=== PATIENT | female | born 1995 | race Caucasian/White ===

== ENCOUNTER → 2017-01-09 | Outpatient (CLI) | payer BC | END | disposition home or self-care (01) | LOC: MW.CHOBGYN 13:28 | PROVIDERS: ATTEND Advanced Practice Midwife | DX: Z34.90 Encounter for supervision of normal pregnancy, unspecified, unspecified trimester (principal) | CPT/HCPCS: 36415; 80305; 81003; 85025; 86592; 86762; 86803; 86850; 86900; 86901; 87086; 87340; 87389; 87491; 87591 ==

== ENCOUNTER → 2017-01-25 | Outpatient (CLI) | payer BC ==
--- NOTE | 2017-01-26 11:16 | US ---
Examination: Greater than 14 weeks transabdominal ultrasound with color Doppler and M-mode evaluatio n. HISTORY: FINDINGS: LMP is 09/06/2016 EVALUATION: Posterior placenta with a cephalic lie and grade 1. Visually amniotic fluid is wit hin normal limits. Three-vessel cord is seen. Ventricles are within normal limits. Nuchal fold thickness is 4.9 mm. Four chamber heart is noted. Heart rate is 143 beats per minute. BIOMETRY AND GESTATIONAL AGE: Biparietal diameter 4.35 cm. The abdominal circumference is 15.2 cm. The femoral length is 3.5 cm wi th head circumference of 16.2 cm. Gestational age is 20 weeks and 0 days. The expected date of leo robbins is approximately 06/14/2017. Fetus weight is 355 grams. Overall the fetus is within the 64th perc entile. However the head circumference is within the 5th percentile. Other detail anatomy summarized into PACs sheet after the images. No anatomical anomalies. IMPRESSION: Single active IU with cephalic fetus. Posterior placenta with grade 1, no placenta previa. No anomalies are seen. Amniotic fluid appears within normal limits.
== END ==
LOC: MW.US 12:23
PROVIDERS: ATTEND Advanced Practice Midwife
DX: Z34.90 Encounter for supervision of normal pregnancy, unspecified, unspecified trimester (principal); Z3A.20 20 weeks gestation of pregnancy
CPT/HCPCS: 76805; 76805-26

== ENCOUNTER 2017-06-09 08:25 | Inpatient (IN) | payer BC ==
[2017-06-09] MEDS ORDERED: Misoprostol 200 MCG Tab PO PRN (08:57)
[2017-06-09] MEDS ORDERED: Nalbuphine 10 MG/1 ML Vial IVPUSH PRN (08:57)
[2017-06-09] MEDS ORDERED: Sodium Chloride 0.9% 2.5 ML Syringe FLUSH PRN (08:57)
[2017-06-09] MEDS ORDERED: Water For Irrigation,Sterile 1,000 ML Container IRR PRN (08:57)
[2017-06-09] MEDS ORDERED: Carboprost Tromethamine 250 MCG/1 ML Amp IM PRN (08:57)
[2017-06-09] MEDS ORDERED: Methylergonovine 0.2 MG/1 ML Amp IM PRN (08:57)
[2017-06-09] MEDS ORDERED: Sodium Chloride 0.9% 10 ML Syringe FLUSH PRN (08:57)
[2017-06-09] MEDS ORDERED: Lidocaine 1% 50 ML MDV INJECT PRN (08:57)
[2017-06-09] MEDS ORDERED: Terbutaline 1 MG/ML SDV SUBCUT PRN (08:59)
[2017-06-09] MEDS ORDERED: Oxytocin/0.9 % Sodium Chloride 30 UNIT/500 ML BAG IV SCH (09:00)
[2017-06-09] MEDS: Lactated Ringers 1,000 ML IV SCH ×2 (09:05→14:00)
--- NOTE | 2017-06-09 10:08 | PCM.LDHP ---
L&D History of Present Illness - General Date of Service: 06/09/17 Admit Problem/Dx: Patient Status Order with Admit Dx/Problem 06/09/17 08:57 Patient Status [ADT] Routine Admission Diagnosis/Problem Admission Diagnosis/Problem 06/09/17 10:02 22 yo EDC 06/13/2017 3939 3/7wks IOL for elevated BP and edema. O+, RI, GBS neg. Source of Information: Patient History Limitations: Reports: No Limitations - History of Present Illness Improves with: Reports: None Worsens with: Reports: None Associated Symptoms: Reports: N - Related Data Allergies/Adverse Reactions: Allergies Allergy/AdvReac Type Severity Reaction Status Date / Time No Known Allergies Allergy Verified 05/15/14 20:57 Home Medications: Home Meds . [No Known Home Meds] 05/15/14 [History] Past Medical History - Past Health History Medical/Surgical History: Denies Medical/Surgical History [employer] SU[employer]OR History: Reports: - Infectious Disease History Infectious Disease History: Reports: Chicken Pox Social & Family History - Family History HEENT: Reports: Impaired Vision Cardiac: Reports: CAD, Hypertension, CT Respiratory: Reports: Asthma OBGYN: Reports: Psychiatric: Reports: Depression Endocrine/Metabolic: Reports: Diabetes, Type I Oncologic: Reports: Brain, Breast, Ovarian - Tobacco Use Smoking Status *Q: Never Smoker Second Hand Smoke Exposure: No - Caffeine Use Caffeine Use: Reports: Soda, Tea - Alcohol Use Days Per Week of Alcohol Use: 0 - Recreational Drug Use Recreational Drug Use: No H&P Review of Systems - Review of Systems: Review Of Systems: See Below General: Reports: No Symptoms HEENT: Reports: No Symptoms Pulmonary: Reports: No Symptoms Cardiovascular: Reports: No Symptoms Gastrointestinal: Reports: No Symptoms Genitourinary: Reports: No Symptoms Musculoskeletal: Reports: No Symptoms Skin: Reports: No Symptoms Psychiatric: Reports: No Symptoms Neurological: Reports: No Symptoms Hematologic/Lymphatic: Reports: No Symptoms Immunologic: Reports: No Symptoms L&D Exam - Exam Exam: See Below - Vital Signs Weight: 95.708 kg - OB Specific Fundal Height In cm: 40 Contraction Duration (sec): 90 Contraction Frequency (min): q4-8 Contraction Intensity: Mild Movement: Active Heart Tones: Present Heart Tones per Min: 135 Heart Rate (FHR) Variability: Moderate (6-25 bmp) Presentation: Vertex Estimated Weight: 3400 - Cyr Score Cyr Score Cervix Position: Anterior Cyr Score Consistency: Soft Cyr Score Effacement: 51-70% Cyr Score Dilation: 3-4 cm Cyr Score Infant's Station: -2 Cyr Score Total: 9 - Exam General: Alert, Oriented, Cooperative HEENT: Hearing Intact Lungs: Clear to Auscultation, Normal Respiratory Effort Cardiovascular: Regular Rate, Regular Rhythm, Normal S1, Normal S2 GI/Abdominal Exam: Soft, Non-Tender, No Organomegaly, No Mass, Pelvis Stable ( gravid) Rectal Exam: Deferred Back Exam: Full Range of Motion Extremities: Normal Inspection, Normal Range of Motion, Non-Tender, Normal Capillary Refill, Pedal Edema (+3) Skin: Warm, Dry, Intact Neurological: Reflexes Equal Bilateral, Normal Speech, Normal Tone Psychiatric: Alert, Normal Affect, Normal Mood - Patient Data Lab Results Last 24 hrs: Laboratory Results - last 24 hr 06/09/17 Range/Units 09:10 WBC 17.18 H (4.0-11.0) K/uL RBC 4.43 (4.30-5.90) M/uL Hgb 13.0 (12.0-16.0) g/dL Hct 39.6 (36.0-46.0) % MCV 89.4 (80.0-98.0) fL MCH 29.3 (27.0-32.0) pg MCHC 32.8 (31.0-37.0) g/dL RDW Std Deviation 48.0 (28.0-62.0) fl RDW Coeff of Shaquille 15 (11.0-15.0) % Plt Count 189 (150-400) K/uL MPV 12.70 H (7.40-12.00) fL Nucleated RBC % 0.0 /100WBC Nucleated RBCs # 0 K/uL Result Diagrams: 06/09/17 09:10 - Problem List (1) Supervision of normal IUP (intrauterine ) in multigravida SNOMED Code(s): 753589882, 151790088, 456900965 ICD Code: Z34.80 - ENCOUNTER FOR SUPRVSN OF NORMAL , UNSP TRIMESTER Status: Acute Priority: High Current Visit: Yes Qualifiers: Trimester: third trimester Qualified Code(s): Z34.83 - Encounter for supervision of other normal , third trimester (2) Elevated blood pressure affecting in third trimester, antepartum SNOMED Code(s): 57834078, 32116425, 655567490 ICD Code: O13.3 - GESTATIONAL HTN W/O SIGNIFICANT PROTEINURIA, THIRD TRIMESTER Status: Acute Priority: High Current Visit: Yes Problem List Initiated/Reviewed/Updated: Yes Orders Last 24hrs: Active Orders 24 hr Category Date Time Status Patient Status [ADT] Routine ADT 06/09/17 08:57 Active Bedrest Bathroom Privileges [RC] ASDIRECTED Care 06/09/17 08:59 Active Communication Order [RC] ASDIRECTED Care 06/09/17 08:59 Active Communication Order [RC] ASDIRECTED Care 06/09/17 08:59 Active Heart Tones [RC] CONTINUOUS Care 06/09/17 08:57 Active Non Stress Test [RC] PER UNIT ROUTINE Care 06/09/17 08:57 Active May Shower [RC] ASDIRECTED Care 06/09/17 08:57 Active Notify Provider [RC] PRN Care 06/09/17 08:57 Active Notify Provider [RC] PRN Care 06/09/17 08:59 Active Notify Provider [RC] STAT Care 06/09/17 08:59 Active Oxygen Therapy [RC] ASDIRECTED Care 06/09/17 08:59 Active Up ad Anne [RC] ASDIRECTED Care 06/09/17 08:57 Active Vaginal Exam [RC] PRN Care 06/09/17 08:57 Active Vaginal Exam [RC] PRN Care 06/09/17 08:59 Active Vital Signs [RC] PER UNIT ROUTINE Care 06/09/17 08:57 Active Vital Signs [RC] PER UNIT ROUTINE Care 06/09/17 08:59 Active TYPE AND SCREEN [BBK] Routine Lab 06/09/17 09:10 Received Carboprost Tromethamine [Hemabate DS] Med 06/09/17 08:57 Active 250 mcg IM ASDIRECTED PRN Lactated Ringers [Ringers, Lactated] 1,000 ml Med 06/09/17 09:00 Active IV ASDIRECTED Lidocaine 1% [Xylocaine 1%] Med 06/09/17 08:57 Active 50 ml INJECT .ONCE PRN Methylergonovine [Methergine] Med 06/09/17 08:57 Active 0.2 mg IM ASDIRECTED PRN Misoprostol [Cytotec] Med 06/09/17 08:57 Active 200 mcg PO .ONCE PRN Nalbuphine [Nubain] Med 06/09/17 08:57 Active 10 mg IVPUSH Q1H PRN Oxytocin/0.9 % Sodium Chloride [Oxytocin 30 Unit/500 ML Med 06/09/17 09:00 Active -NS] 30 unit in 500 ml IV TITRATE Sodium Chloride 0.9% [Saline Flush] Med 06/09/17 08:57 Active 10 ml FLUSH ASDIRECTED PRN Sodium Chloride 0.9% [Saline Flush] Med 06/09/17 08:57 Active 2.5 ml FLUSH ASDIRECTED PRN Terbutaline [Brethine] Med 06/09/17 08:59 Active 0.25 mg SUBCUT ASDIRECTED PRN Water For Irrigation,Sterile [Sterile Water for Med 06/09/17 08:57 Active Irrigation] 1,000 ml IRR ASDIRECTED PRN Scalp Electrode [WOMSER] Per Unit Routine Oth 06/09/17 08:57 Ordered Medication Administration Instruction [OM.PC] Q3H Oth 06/09/17 09:00 Ordered Peripheral IV Insertion Adult [OM.PC] Routine Oth 06/09/17 08:57 Ordered Resuscitation Status Routine Resus Stat 06/09/17 08:57 Ordered Medication Orders Carboprost Tromethamine (Hemabate Ds) 250 mcg IM ASDIRECTED PRN PRN Reason: Post Hemorrhage Lactated Ringer's (Ringers, Lactated) 1,000 mls @ 150 mls/hr IV ASDIRECTED DAVE Last Admin: 06/09/17 09:05 Dose: 150 mls/hr Oxytocin/Sodium Chloride (Oxytocin 30 Unit/500 Ml-Ns) 30 unit in 500 mls @ 2 mls/hr IV TITRATE DAVE; 2 MUNITS/MIN PRN Reason: Protocol Last Titration: 06/09/17 09:57 Dose: 4 munits/min, 4 mls/hr Admin: 06/09/17 09:26 Dose: 2 munits/min, 2 mls/hr Lidocaine HCl (Xylocaine 1%) 50 ml INJECT .ONCE PRN PRN Reason: Laceration repair Methylergonovine Maleate (Methergine) 0.2 mg IM ASDIRECTED PRN PRN Reason: Post Hemorrhage Misoprostol (Cytotec) 200 mcg PO .ONCE PRN PRN Reason: Post Hemorrhage Nalbuphine HCl (Nubain) 10 mg IVPUSH Q1H PRN PRN Reason: Pain (severe 7-10) Sodium Chloride (Saline Flush) 10 ml FLUSH ASDIRECTED PRN PRN Reason: Keep Vein Open Sodium Chloride (Saline Flush) 2.5 ml FLUSH ASDIRECTED PRN PRN Reason: Keep Vein Open Sterile Water (Sterile Water For Irrigation) 1,000 ml IRR ASDIRECTED PRN PRN Reason: delivery Terbutaline Sulfate (Brethine) 0.25 mg SUBCUT ASDIRECTED PRN PRN Reason: Tacysystole Assessment/Plan Comment:: IOL A: 22 yo EDC 06/13/2017 3939 3/7wks IOL for elevated BP 140/100 (no other symptoms) and edema. O+, RI, GBS neg. P: admit for IOL, pitocin per protocol, epidural prn, anticipate .
[2017-06-09] MEDS ORDERED: fentaNYL 100 MCG/2 ML SDV ONE (14:05)
[2017-06-09] MEDS ORDERED: Ropivacaine HCl/PF 0 ML ONE (14:05)
[2017-06-09] MEDS ORDERED: Ropivacaine 0.2% 2 MG/ML 20 ML SDV ONE (14:06)
--- NOTE | 2017-06-09 15:37 | PCM.PREANE ---
Preanesthetic Assessment - Anesthesia/Transfusion/Family Hx Anesthesia History: Prior Anesthesia Without Reaction Family History of Anesthesia Reaction: No Transfusion History: No Prior Transfusion(s) - Review of Systems Pulmonary: No Symptoms Cardiovascular: No Symptoms Gastrointestinal: No Symptoms Neurological: No Symptoms Other: Reports: None - Physical Assessment NPO Status Date: 06/09/17 NPO Status Time: 15:31 (cl liquids) Height: 1.6 m Weight: 95.708 kg ASA Class: 3 Mental Status: Alert & Oriented x3 Airway Class: Mallampati = 3 Dentition: Reports: Normal Dentition Thyro-Mental Finger Breadths: 3 Mouth Opening Finger Breadths: 3 ROM/Head Extension: Full Lungs: Clear to Auscultation Cardiovascular: Regular Rate, Regular Rhythm - Lab Values: Laboratory Last Values WBC 17.18 K/uL (4.0-11.0) H 06/09/17 09:10 RBC 4.43 M/uL (4.30-5.90) 06/09/17 09:10 Hgb 13.0 g/dL (12.0-16.0) 06/09/17 09:10 Hct 39.6 % (36.0-46.0) 06/09/17 09:10 MCV 89.4 fL (80.0-98.0) 06/09/17 09:10 MCH 29.3 pg (27.0-32.0) 06/09/17 09:10 MCHC 32.8 g/dL (31.0-37.0) 06/09/17 09:10 RDW Std Deviation 48.0 fl (28.0-62.0) 06/09/17 09:10 RDW Coeff of Shaquille 15 % (11.0-15.0) 06/09/17 09:10 Plt Count 189 K/uL (150-400) 06/09/17 09:10 MPV 12.70 fL (7.40-12.00) H 06/09/17 09:10 Nucleated RBC % 0.0 /100WBC 06/09/17 09:10 Nucleated RBCs # 0 K/uL 06/09/17 09:10 Blood Type O POSITIVE 06/09/17 09:10 Antibody Screen NEGATIVE 06/09/17 09:10 - Allergies Allergies/Adverse Reactions: Allergies Allergy/AdvReac Type Severity Reaction Status Date / Time No Known Allergies Allergy Verified 05/15/14 20:57 - Blood Blood Available: Yes Product(s) Available: PRBC - Acknowledgements Anesthesia Type Planned: Epidural Pt an Appropriate Candidate for the Planned Anesthesia: Yes Alternatives and Risks of Anesthesia Discussed w Pt/Guardian: Yes Pt/Guardian Understands and Agrees with Anesthesia Plan: Yes PreAnesthesia Questionnaire - Past Health History Medical/Surgical History: Denies Medical/Surgical History Other Cardiovascular History: gestational hypertension, new onset 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 weed - HOME MEDS Home Medications: Home Meds . [No Known Home Meds] 05/15/14 [History] - CURRENT (IN HOUSE) MEDS Current Meds: Current Medications Carboprost Tromethamine (Hemabate Ds) 250 mcg IM ASDIRECTED PRN PRN Reason: Post Hemorrhage Lactated Ringer's (Ringers, Lactated) 1,000 mls @ 150 mls/hr IV ASDIRECTED DAVE Last Admin: 06/09/17 14:00 Dose: 999 mls/hr Oxytocin/Sodium Chloride (Oxytocin 30 Unit/500 Ml-Ns) 30 unit in 500 mls @ 2 mls/hr IV TITRATE DAVE; 2 MUNITS/MIN PRN Reason: Protocol Last Titration: 06/09/17 13:52 Dose: 0 munits/min, 0 mls/hr Lidocaine HCl (Xylocaine 1%) 50 ml INJECT .ONCE PRN PRN Reason: Laceration repair Methylergonovine Maleate (Methergine) 0.2 mg IM ASDIRECTED PRN PRN Reason: Post Hemorrhage Misoprostol (Cytotec) 200 mcg PO .ONCE PRN PRN Reason: Post Hemorrhage Nalbuphine HCl (Nubain) 10 mg IVPUSH Q1H PRN PRN Reason: Pain (severe 7-10) Sodium Chloride (Saline Flush) 10 ml FLUSH ASDIRECTED PRN PRN Reason: Keep Vein Open Sodium Chloride (Saline Flush) 2.5 ml FLUSH ASDIRECTED PRN PRN Reason: Keep Vein Open Sterile Water (Sterile Water For Irrigation) 1,000 ml IRR ASDIRECTED PRN PRN Reason: delivery Terbutaline Sulfate (Brethine) 0.25 mg SUBCUT ASDIRECTED PRN PRN Reason: Tacysystole Discontinued Medications Fentanyl (Sublimaze) Confirm Administered Dose 300 mcg .ROUTE .STK-MED ONE Stop: 06/09/17 14:06 Ropivacaine (Naropin 0.2%) Confirm Administered Dose 100 mls @ as directed .ROUTE .STK-MED ONE Stop: 06/09/17 14:06 Ropivacaine (Naropin 0.2%) Confirm Administered Dose 20 ml .ROUTE .STK-MED ONE Stop: 06/09/17 14:07 - Pre-Procedure Checklist Attending Provider Aware: Yes Chart Reviewed: Yes Consent Signed: Yes Labs Reviewed: Yes VS/FHR Reviewed: Yes Pt an Appropriate Candidate for the Planned Anesthesia: Yes Alternatives and Risks of Anesthesia Discussed w Pt/Guardian: Yes - Procedure Procedure Start Date: 06/09/17 Procedure Start Time: 14:[address]: Reports: Blood Pressure, Heart Rate, SPO2 Functional IV: Yes Safety Measures: Reports: Patient Identified, Procedure Verified, Site Verified , Procedure Time Out Patient Position: Reports: Left Lateral (@ 1457), Sitting (@ 1414) Prep: Reports: Betadine x3, Sterile Drape Local Anesthetic: Reports: Intradermal Wheal w Lidocaine 1% Regional Placement Level: Reports: L4-5 Needle: Reports: 17 g Touhy Approach: Reports: Midline Technique: Reports: LB Glass Syringe LB Needle Depth (cm): 9 cm Parasthesia: Reports: None Fluid Obtained: Reports: Heme (heme obtained on second attempt, site dc'd), None Catheter Depth at Skin (cm): 15 cm (@ 1505) Test Dose Time: 15:06 Test Dose Response: Reports: Negative Loading Dose Time: 15:13 (pt given loading dose in increments over 5 minutes) Loading Dose Medication: 100 mcg fentanyl followed by 2-5 ml doses of 0.2% ropivacaine over 5 minute Loading Dose Patient Position: semi fowlers with KATIE VS and FHR Monitored in Unit Post Placement: Yes Procedure End Date: 06/09/17 Procedure End Time: 15:49 Procedure Comment: Pt unable to position self to allow passage of Tuohy needle. 2 attempts in sitting position at L4-5 and L 3-4. Heme return at L3-4 level. Pt then positioned into L latereal and L 4-5 accessed. LB felt and catheter threaded although no definite ligament tissue felt. Pt progressed to complete during placement and could not overcome urge to push. Successful delivery without ability to determine if epidural effective. Upon assessment after delivery, pt able to move legs and feels no changes in sensation, so it is doubtful that catheter was in epidural space, it was most likely in "false epidural space". Will evaluate before discharge.
[2017-06-09] MEDS ORDERED: Acetaminophen 500 MG Tab PO PRN (15:50)
[2017-06-09] MEDS ORDERED: Lanolin 100% Cream 7 GM Tube TOP PRN (15:50)
[2017-06-09] MEDS ORDERED: Ibuprofen 400 MG Tab PO PRN (15:50)
[2017-06-09] MEDS ORDERED: oxyCODONE 5 MG Tab PO PRN (15:50)
[2017-06-09] MEDS ORDERED: Docusate Sodium 100 MG Cap PO PRN (15:50)
[2017-06-09] MEDS ORDERED: Witch Hazel Medicated Pads 40/Jar TOP PRN (15:50)
[2017-06-09] MEDS ORDERED: Benzocaine/Menthol 20%-0.5% Spray 78 GM Cannister TOP PRN (15:50)
[2017-06-09] MEDS ORDERED: Bisacodyl 10 MG Supp RECTAL PRN (15:50)
--- NOTE | 2017-06-09 16:01 | PCM.DEL ---
L & D Note - General Info Date of Service: 06/09/17 Mother's Due Date: 06/13/18 - Delivery Note Labor: Spontaneous, Induced by Oxytocin Delivery Outcome: Livebirth Infant Delivery Method: Spontaneous Vaginal Delivery-Single Infant Delivery Mode: Spontaneous Presentation: Vertex Anesthesia Type: Epidural (Epidural attempted by no pain relief) Anesthetic: Lidocaine (Xylocaine) 1% Plain Local Anesthetic Volume: 1cc Amniotic Fluid Description: Clear Episiotomy Type: None Laceration: 1st Degree Suture type: Vicryl Suture size: 3-0 Placenta: Intact, Spontaneous Cord: 3 Vessels Estimated Blood Loss: 100 Resuscitation Needed: No : Stimulated Score 1 min: 9 Score 5 min: 9 Second Stage Interventions: Reports: Pushing Effectively Delivery Comments (Free Text/Narrative):: of viable male over intact perineum without pain medication or working epidural. Head delivered with right hand and arm, shoulders and body followed easily. to mothers abdomen with RN at for evaluation. Pitocin to IVF, delayed cord clamping. Cord clamped x2 and cut by FOB. Cord blood collected. Placenta delivered grossly intact, 3VC. Inspection noted 1st degree perineal laceration that was repaired in the usual manor with a 3-0 gaby. EBL 100ml. APGARS 9/9, Wt pending bonding. Mother and left in stable condition bonding well. Induction Criteria - Cyr Score Cyr Score Dilation: 3-4 cm Cyr Score Effacement: >80% Cyr Score 's Station: -2 Cyr Score Consistency: Soft Cyr Score Cervix Position: Anterior Cyr Score Total: 10 Cyr Score Presenting Part: Reports: Cephalic - Induction Gestational Age >/= 39 wks: Yes Medical Indication: Edema and elevated BP Estimated Pelvis: Reports: Adequate Reassuring Monitoring Strip: Yes Absence of Tachy Systole: Yes - General Info Date of Service: 06/09/17 Admission Dx/Problem (Free Text): Patient Status Order with Admit Dx/Problem 06/09/17 08:57 Patient Status [ADT] Routine Admission Diagnosis/Problem Admission Diagnosis/Problem 06/09/17 10:02 22 yo EDC 06/13/2017 3939 3/7wks IOL for elevated BP and edema. O+, RI, GBS neg. Functional Status: Reports: Pain Controlled, Tolerating Diet, Ambulating, Urinating - Review of Systems General: Reports: No Symptoms HEENT: Reports: No Symptoms Pulmonary: Reports: No Symptoms Cardiovascular: Reports: No Symptoms Gastrointestinal: Reports: No Symptoms Genitourinary: Reports: No Symptoms Musculoskeletal: Reports: No Symptoms Skin: Reports: No Symptoms Neurological: Reports: No Symptoms Psychiatric: Reports: No Symptoms - Patient Data Weight - Most Recent: 95.708 kg Lab Results Last 24 Hours: Laboratory Results - last 24 hr 06/09/17 06/09/17 Range/Units 09:10 09:10 WBC 17.18 H (4.0-11.0) K/uL RBC 4.43 (4.30-5.90) M/uL Hgb 13.0 (12.0-16.0) g/dL Hct 39.6 (36.0-46.0) % MCV 89.4 (80.0-98.0) fL MCH 29.3 (27.0-32.0) pg MCHC 32.8 (31.0-37.0) g/dL RDW Std Deviation 48.0 (28.0-62.0) fl RDW Coeff of Shaquille 15 (11.0-15.0) % Plt Count 189 (150-400) K/uL MPV 12.70 H (7.40-12.00) fL Nucleated RBC % 0.0 /100WBC Nucleated RBCs # 0 K/uL Blood Type O POSITIVE Antibody Screen NEGATIVE Med Orders - Current: Current Medications Acetaminophen (Tylenol Extra Strength) 500 mg PO Q4H PRN PRN Reason: Pain Acetaminophen (Tylenol Extra Strength) 1,000 mg PO Q4H PRN PRN Reason: Pain Benzocaine/Menthol (Dermoplast Pain Relief 20%-0.5% Streetman) 78 gm TOP ASDIRECTED PRN PRN Reason: Perineal Comfort Measure Bisacodyl (Dulcolax) 10 mg RECTAL .ONCE PRN PRN Reason: Constipation Docusate Sodium (Colace) 100 mg PO BID PRN PRN Reason: Constipation Emollient Ointment (Lansinoh Hpa) 0 gm TOP ASDIRECTED PRN PRN Reason: Sore Nipples Ibuprofen (Motrin) 400 mg PO Q4H PRN PRN Reason: Pain Ibuprofen (Motrin) 800 mg PO Q6H PRN PRN Reason: Pain Oxycodone HCl (Oxycodone) 5 mg PO Q2H PRN PRN Reason: Pain Witch Neena (Tucks) 1 pad TOP ASDIRECTED PRN PRN Reason: comfort care Discontinued Medications Carboprost Tromethamine (Hemabate Ds) 250 mcg IM ASDIRECTED PRN PRN Reason: Post Hemorrhage Fentanyl (Sublimaze) Confirm Administered Dose 300 mcg .ROUTE .Minted-MED ONE Stop: 06/09/17 14:06 Lactated Ringer's (Ringers, Lactated) 1,000 mls @ 150 mls/hr IV ASDIRECTED DAVE Last Admin: 06/09/17 14:00 Dose: 999 mls/hr Oxytocin/Sodium Chloride (Oxytocin 30 Unit/500 Ml-Ns) 30 unit in 500 mls @ 2 mls/hr IV TITRATE DAVE; 2 MUNITS/MIN PRN Reason: Protocol Last Titration: 06/09/17 13:52 Dose: 0 munits/min, 0 mls/hr Ropivacaine (Naropin 0.2%) Confirm Administered Dose 100 mls @ as directed .ROUTE .Minted-DATY ONE Stop: 06/09/17 14:06 Lidocaine HCl (Xylocaine 1%) 50 ml INJECT .ONCE PRN PRN Reason: Laceration repair Methylergonovine Maleate (Methergine) 0.2 mg IM ASDIRECTED PRN PRN Reason: Post Hemorrhage Misoprostol (Cytotec) 200 mcg PO .ONCE PRN PRN Reason: Post Hemorrhage Nalbuphine HCl (Nubain) 10 mg IVPUSH Q1H PRN PRN Reason: Pain (severe 7-10) Ropivacaine (Naropin 0.2%) Confirm Administered Dose 20 ml .ROUTE .Minted-MED ONE Stop: 06/09/17 14:07 Sodium Chloride (Saline Flush) 10 ml FLUSH ASDIRECTED PRN PRN Reason: Keep Vein Open Sodium Chloride (Saline Flush) 2.5 ml FLUSH ASDIRECTED PRN PRN Reason: Keep Vein Open Sterile Water (Sterile Water For Irrigation) 1,000 ml IRR ASDIRECTED PRN PRN Reason: delivery Terbutaline Sulfate (Brethine) 0.25 mg SUBCUT ASDIRECTED PRN PRN Reason: Tacysystole - Exam General: Alert, Oriented, Cooperative, No Acute Distress Lungs: Normal Respiratory Effort GI/Abdominal Exam: Soft, Non-Tender, No Organomegaly, No Distention, No Mass, Pelvis Stable (Female) Exam: Normal External Exam, Normal Bimanual Exam, Vaginal Bleeding Back Exam: Full Range of Motion Extremities: Normal Range of Motion, Non-Tender, No Pedal Edema, Normal Capillary Refill Skin: Warm, Dry, Intact Wound/Incisions: Healing Well Neurological: No New Focal Deficit, Normal Speech, Normal Tone Psy/Mental Status: Alert, Normal Affect, Normal Mood - Problem List & Annotations (1) Supervision of normal IUP (intrauterine ) in multigravida SNOMED Code(s): 632560958, 334649625, 642408675 Code(s): Z34.80 - ENCOUNTER FOR SUPRVSN OF NORMAL , UNSP TRIMESTER Status: Acute Priority: High Current Visit: Yes Qualifiers: Trimester: third trimester Qualified Code(s): Z34.83 - Encounter for supervision of other normal , third trimester (2) Elevated blood pressure affecting in third trimester, antepartum SNOMED Code(s): 38292944, 83141489, 191268771 Code(s): O13.3 - GESTATIONAL HTN W/O SIGNIFICANT PROTEINURIA, THIRD TRIMESTER Status: Acute Priority: High Current Visit: Yes (3) (normal spontaneous vaginal delivery) SNOMED Code(s): 91883580 Code(s): O80 - ENCOUNTER FOR FULL-TERM UNCOMPLICATED DELIVERY Status: Acute Priority: High Current Visit: Yes - Problem List Review Problem List Initiated/Reviewed/Updated: Yes - My Orders Last 24 Hours: My Active Orders 06/09/17 08:57 Heart Tones [RC] CONTINUOUS Non Stress Test [RC] PER UNIT ROUTINE May Shower [RC] ASDIRECTED Notify Provider [RC] PRN Up ad Anne [RC] ASDIRECTED Vaginal Exam [RC] PRN Vital Signs [RC] PER UNIT ROUTINE 06/09/17 08:59 Bedrest Bathroom Privileges [RC] ASDIRECTED Communication Order [RC] ASDIRECTED Communication Order [RC] ASDIRECTED Notify Provider [RC] PRN Notify Provider [RC] STAT Oxygen Therapy [RC] ASDIRECTED Vaginal Exam [RC] PRN Vital Signs [RC] PER UNIT ROUTINE 06/09/17 15:50 May Shower [RC] ASDIRECTED Up ad Anne [RC] ASDIRECTED Vital Signs [RC] PER UNIT ROUTINE Acetaminophen [Tylenol Extra Strength] 1,000 mg PO Q4H PRN Acetaminophen [Tylenol Extra Strength] 500 mg PO Q4H PRN Benzocaine/Menthol [Dermoplast Pain Relief 20%-0.5% Streetman] 78 gm TOP ASDIRECTED PRN Bisacodyl [Dulcolax] 10 mg RECTAL .ONCE PRN Docusate Sodium [Colace] 100 mg PO BID PRN Ibuprofen [Motrin] 400 mg PO Q4H PRN Ibuprofen [Motrin] 800 mg PO Q6H PRN Lanolin [Lansinoh HPA] See Dose Instructions TOP ASDIRECTED PRN Witch Neena [Tucks] 1 pad TOP ASDIRECTED PRN oxyCODONE 5 mg PO Q2H PRN Assess Lochia [WOMSER] Per Unit Routine Assess Uterine Involution [WOMSER] Per Unit Routine Peripheral IV Discontinue [OM.PC] Routine Resuscitation Status Routine 06/09/17 15:51 Patient Status [ADT] Routine 06/09/17 Dinner Regular Diet [DIET] - Assessment Assessment:: Delivery A: of viable male. APGARS 9/9, Wt pending bonding. 1st degree lac with repair, EBL 100cc. Stable - Plan Plan:: IOL A: 22 yo EDC 06/13/2017 3939 3/7wks IOL for elevated BP 140/100 (no other symptoms) and edema. O+, RI, GBS neg. P: admit for IOL, pitocin per protocol, epidural prn, anticipate . Delivery P: routine pp plan of care.
[2017-06-09] MEDS: Ibuprofen 800 MG Tab PO PRN ×2 (16:10→22:51)
[2017-06-09] MEDS: Acetaminophen 500 MG Tab PO PRN (20:34)
[2017-06-10] MEDS: Ibuprofen 800 MG Tab PO PRN (08:37)
--- NOTE | 2017-06-10 09:05 | PCM48HPAN ---
Post Anesthesia Note - EVALUATION WITHIN 48HRS OF ANESTHETIC Vital Signs in Normal Range: Yes Patient Participated in Evaluation: Yes Respiratory Function Stable: Yes Airway Patent: Yes Cardiovascular Function Stable: Yes Hydration Status Stable: Yes Pain Control Satisfactory: Yes Nausea and Vomiting Control Satisfactory: Yes Mental Status Recovered: Yes - COMMENTS/OBSERVATIONS Free Text/Narrative:: Pt reports back tenderness at insertion site of epidural. No other reports of symptoms associated with epidural placement.
[2017-06-10] MEDS: Acetaminophen 500 MG Tab PO PRN (13:12)
[2017-06-10 13:57] VITALS: BP 118/65
--- NOTE | 2017-06-10 15:46 | PCM.DCSUM1 ---
Discharge Summary - Hospital Course Free Text/Narrative:: Discharge home with son. Follow up 6 weeks or sooner if needed. - Discharge Data Discharge Date: 06/10/17 Discharge Disposition: Home, Self-Care 01 Condition: Good - Discharge Diagnosis/Problem(s) (1) Supervision of normal IUP (intrauterine ) in multigravida SNOMED Code(s): 963884703, 809610255, 090443172 ICD Code: Z34.80 - ENCOUNTER FOR SUPRVSN OF NORMAL , UNSP TRIMESTER Status: Acute Priority: High Current Visit: Yes Qualifiers: Trimester: third trimester Qualified Code(s): Z34.83 - Encounter for supervision of other normal , third trimester (2) Elevated blood pressure affecting in third trimester, antepartum SNOMED Code(s): 00116771, 89923857, 633037635 ICD Code: O13.3 - GESTATIONAL HTN W/O SIGNIFICANT PROTEINURIA, THIRD TRIMESTER Status: Acute Priority: High Current Visit: Yes (3) (normal spontaneous vaginal delivery) SNOMED Code(s): 52541065 ICD Code: O80 - ENCOUNTER FOR FULL-TERM UNCOMPLICATED DELIVERY Status: Acute Priority: High Current Visit: Yes - Patient Instructions Diet: Usual Diet as Tolerated Activity: As Tolerated, Rest and Relax Today Driving: May Drive Today Showering/Bathing: May Shower Notify Provider of: Fever, Increased Pain, Swelling and Redness, Nausea and/or Vomiting Other/Special Instructions: Discharge home with infant son. Follow up 6 weeks or sooner if needed. - Discharge Plan Home Medications: Home Meds . [No Known Home Meds] 05/15/14 [History] Patient Handouts: Home Care Instructions for Mom, Vaginal Delivery, Care After , Care After Vaginal Delivery Referrals: Ermelinda Hunter CNM [Mid-] - - General Info Date of Service: 06/10/17 Admission Dx/Problem (Free Text: Patient Status Order with Admit Dx/Problem 06/09/17 08:57 Patient Status [ADT] Routine Admission Diagnosis/Problem Admission Diagnosis/Problem 06/09/17 10:02 22 yo EDC 06/13/2017 3939 3/7wks IOL for elevated BP and edema. O+, RI, GBS neg. Functional Status: Reports: Pain Controlled, Tolerating Diet, Ambulating, Urinating - Review of Systems General: Reports: No Symptoms HEENT: Reports: No Symptoms Pulmonary: Reports: No Symptoms Cardiovascular: Reports: No Symptoms Gastrointestinal: Reports: No Symptoms Genitourinary: Reports: No Symptoms Musculoskeletal: Reports: No Symptoms Skin: Reports: No Symptoms Neurological: Reports: No Symptoms Psychiatric: Reports: No Symptoms - Patient Data Vitals - Most Recent: Last Vital Signs Temp 37.1 C 06/10/17 08:00 Pulse 91 06/10/17 08:00 Resp 18 06/10/17 08:00 BP 118/65 06/10/17 08:00 Pulse Ox 98 06/10/17 08:00 Weight - Most Recent: 95.708 kg Med Orders - Current: Current Medications Acetaminophen (Tylenol Extra Strength) 500 mg PO Q4H PRN PRN Reason: Pain Acetaminophen (Tylenol Extra Strength) 1,000 mg PO Q4H PRN PRN Reason: Pain Last Admin: 06/10/17 13:12 Dose: 1,000 mg Benzocaine/Menthol (Dermoplast Pain Relief 20%-0.5% [place]) 78 gm TOP ASDIRECTED PRN PRN Reason: Perineal Comfort Measure Bisacodyl (Dulcolax) 10 mg RECTAL .ONCE PRN PRN Reason: Constipation Docusate Sodium (Colace) 100 mg PO BID PRN PRN Reason: Constipation Emollient Ointment (Lansinoh Hpa) 0 gm TOP ASDIRECTED PRN PRN Reason: Sore Nipples Ibuprofen (Motrin) 400 mg PO Q4H PRN PRN Reason: Pain Ibuprofen (Motrin) 800 mg PO Q6H PRN PRN Reason: Pain Last Admin: 06/10/17 08:37 Dose: 800 mg Oxycodone HCl (Oxycodone) 5 mg PO Q2H PRN PRN Reason: Pain Witch Neena (Tucks) 1 pad TOP ASDIRECTED PRN PRN Reason: comfort care Discontinued Medications Carboprost Tromethamine (Hemabate Ds) 250 mcg IM ASDIRECTED PRN PRN Reason: Post Hemorrhage Fentanyl (Sublimaze) Confirm Administered Dose 300 mcg .ROUTE .STK-MED ONE Stop: 06/09/17 14:06 Last Admin: 06/09/17 21:32 Dose: Not Given Lactated Ringer's (Ringers, Lactated) 1,000 mls @ 150 mls/hr IV ASDIRECTED DAVE Last Admin: 06/09/17 14:00 Dose: 999 mls/hr Oxytocin/Sodium Chloride (Oxytocin 30 Unit/500 Ml-Ns) 30 unit in 500 mls @ 2 mls/hr IV TITRATE DAVE; 2 MUNITS/MIN PRN Reason: Protocol Last Titration: 06/09/17 15:22 Dose: 500 munits/min, 500 mls/hr Ropivacaine (Naropin 0.2%) Confirm Administered Dose 100 mls @ as directed .ROUTE .[employer] ONE Stop: 06/09/17 14:06 Last Admin: 06/09/17 21:32 Dose: Not Given Lidocaine HCl (Xylocaine 1%) 50 ml INJECT .ONCE PRN PRN Reason: Laceration repair Last Admin: 06/09/17 15:25 Dose: 50 ml Methylergonovine Maleate (Methergine) 0.2 mg IM ASDIRECTED PRN PRN Reason: Post Hemorrhage Misoprostol (Cytotec) 200 mcg PO .ONCE PRN PRN Reason: Post Hemorrhage Nalbuphine HCl (Nubain) 10 mg IVPUSH Q1H PRN PRN Reason: Pain (severe 7-10) Ropivacaine (Naropin 0.2%) Confirm Administered Dose 20 ml .ROUTE .[employer] ONE Stop: 06/09/17 14:07 Last Admin: 06/09/17 21:32 Dose: Not Given Sodium Chloride (Saline Flush) 10 ml FLUSH ASDIRECTED PRN PRN Reason: Keep Vein Open Sodium Chloride (Saline Flush) 2.5 ml FLUSH ASDIRECTED PRN PRN Reason: Keep Vein Open Sterile Water (Sterile Water For Irrigation) 1,000 ml IRR ASDIRECTED PRN PRN Reason: delivery Terbutaline Sulfate (Brethine) 0.25 mg SUBCUT ASDIRECTED PRN PRN Reason: Tacysystole - Exam General: Reports: Alert, Oriented, Cooperative, No Acute Distress Lungs: Reports: Clear to Auscultation, Normal Respiratory Effort Cardiovascular: Reports: Regular Rate, Regular Rhythm GI/Abdominal Exam: Soft, Non-Tender, No Distention, No Mass, Pelvis Stable (Female) Exam: Vaginal Bleeding Rectal (Female) Exam: Deferred Back Exam: Reports: Full Range of Motion Extremities: Normal Range of Motion, Non-Tender, Normal Capillary Refill, Pedal Edema Skin: Reports: Warm, Dry, Intact Wound/Incisions: Reports: Healing Well Neurological: Reports: No New Focal Deficit, Normal Speech, Normal Tone Psy/Mental Status: Reports: Alert, Normal Affect, Normal Mood *Q Meaningful Use (DIS) - VTE *Q VTE Criteria *Q: - Stroke *Q Stroke Criteria *Q: - AMI *Q AMI Criteria *Q:
--- NOTE | 2017-06-29 09:19 | PCM.PREANE ---
Preanesthetic Assessment - Anesthesia/Transfusion/Family Hx Anesthesia History: Prior Anesthesia Without Reaction Family History of Anesthesia Reaction: No Transfusion History: No Prior Transfusion(s) - Review of Systems Other: Reports: None - Physical Assessment NPO Status Date: 06/09/17 NPO Status Time: 15:31 (cl liquids) O2 Sat by Pulse Oximetry: 98 Respiratory Rate: 18 Vital Signs: Last Vital Signs Temp 37.1 C 06/10/17 08:00 Pulse 91 06/10/17 08:00 Resp 18 06/10/17 08:00 BP 118/65 06/10/17 08:00 Pulse Ox 98 06/10/17 08:00 Height: 1.6 m Weight: 95.708 kg - Lab Values: Laboratory Last Values WBC 17.18 K/uL (4.0-11.0) H 06/09/17 09:10 RBC 4.43 M/uL (4.30-5.90) 06/09/17 09:10 Hgb 13.0 g/dL (12.0-16.0) 06/09/17 09:10 Hct 39.6 % (36.0-46.0) 06/09/17 09:10 MCV 89.4 fL (80.0-98.0) 06/09/17 09:10 MCH 29.3 pg (27.0-32.0) 06/09/17 09:10 MCHC 32.8 g/dL (31.0-37.0) 06/09/17 09:10 RDW Std Deviation 48.0 fl (28.0-62.0) 06/09/17 09:10 RDW Coeff of Shaquille 15 % (11.0-15.0) 06/09/17 09:10 Plt Count 189 K/uL (150-400) 06/09/17 09:10 MPV 12.70 fL (7.40-12.00) H 06/09/17 09:10 Nucleated RBC % 0.0 /100WBC 06/09/17 09:10 Nucleated RBCs # 0 K/uL 06/09/17 09:10 Blood Type O POSITIVE 06/09/17 09:10 Antibody Screen NEGATIVE 06/09/17 09:10 - Allergies Allergies/Adverse Reactions: Allergies Allergy/AdvReac Type Severity Reaction Status Date / Time No Known Allergies Allergy Verified 05/15/14 20:57 - Blood Blood Available: Yes Product(s) Available: PRBC PreAnesthesia Questionnaire - Past Health History Medical/Surgical History: Denies Medical/Surgical History Other Cardiovascular History: gestational hypertension, new onset 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 [No Known Home Meds] 05/15/14 [History] - CURRENT (IN HOUSE) MEDS Current Meds: Current Medications Discontinued Medications Acetaminophen (Tylenol Extra Strength) 500 mg PO Q4H PRN PRN Reason: Pain Acetaminophen (Tylenol Extra Strength) 1,000 mg PO Q4H PRN PRN Reason: Pain Last Admin: 06/10/17 13:12 Dose: 1,000 mg Benzocaine/Menthol (Dermoplast Pain Relief 20%-0.5% [place]) 78 gm TOP ASDIRECTED PRN PRN Reason: Perineal Comfort Measure Bisacodyl (Dulcolax) 10 mg RECTAL .ONCE PRN PRN Reason: Constipation Carboprost Tromethamine (Hemabate Ds) 250 mcg IM ASDIRECTED PRN PRN Reason: Post Hemorrhage Docusate Sodium (Colace) 100 mg PO BID PRN PRN Reason: Constipation Emollient Ointment (Lansinoh Hpa) 0 gm TOP ASDIRECTED PRN PRN Reason: Sore Nipples Fentanyl (Sublimaze) Confirm Administered Dose 300 mcg .ROUTE .STK-MED ONE Stop: 06/09/17 14:06 Last Admin: 06/09/17 21:32 Dose: Not Given Lactated Ringer's (Ringers, Lactated) 1,000 mls @ 150 mls/hr IV ASDIRECTED DAVE Last Admin: 06/09/17 14:00 Dose: 999 mls/hr Oxytocin/Sodium Chloride (Oxytocin 30 Unit/500 Ml-Ns) 30 unit in 500 mls @ 2 mls/hr IV TITRATE DAVE; 2 MUNITS/MIN PRN Reason: Protocol Last Titration: 06/09/17 15:22 Dose: 500 munits/min, 500 mls/hr Ropivacaine (Naropin 0.2%) Confirm Administered Dose 100 mls @ as directed .ROUTE .[employer] ONE Stop: 06/09/17 14:06 Last Admin: 06/09/17 21:32 Dose: Not Given Ibuprofen (Motrin) 400 mg PO Q4H PRN PRN Reason: Pain Ibuprofen (Motrin) 800 mg PO Q6H PRN PRN Reason: Pain Last Admin: 06/10/17 08:37 Dose: 800 mg Lidocaine HCl (Xylocaine 1%) 50 ml INJECT .ONCE PRN PRN Reason: Laceration repair Last Admin: 06/09/17 15:25 Dose: 50 ml Methylergonovine Maleate (Methergine) 0.2 mg IM ASDIRECTED PRN PRN Reason: Post Hemorrhage Misoprostol (Cytotec) 200 mcg PO .ONCE PRN PRN Reason: Post Hemorrhage Nalbuphine HCl (Nubain) 10 mg IVPUSH Q1H PRN PRN Reason: Pain (severe 7-10) Oxycodone HCl (Oxycodone) 5 mg PO Q2H PRN PRN Reason: Pain Ropivacaine (Naropin 0.2%) Confirm Administered Dose 20 ml .ROUTE .[employer] ONE Stop: 06/09/17 14:07 Last Admin: 06/09/17 21:32 Dose: Not Given Sodium Chloride (Saline Flush) 10 ml FLUSH ASDIRECTED PRN PRN Reason: Keep Vein Open Sodium Chloride (Saline Flush) 2.5 ml FLUSH ASDIRECTED PRN PRN Reason: Keep Vein Open Sterile Water (Sterile Water For Irrigation) 1,000 ml IRR ASDIRECTED PRN PRN Reason: delivery Terbutaline Sulfate (Brethine) 0.25 mg SUBCUT ASDIRECTED PRN PRN Reason: Tacysystole Witch Neena (Tucks) 1 pad TOP ASDIRECTED PRN PRN Reason: comfort care
== END 2017-06-10 17:40 | disposition home or self-care (01) | DRG 560 ==
LOC: MW.OBCHECK 08:25 → MW.OB 08:32 → MW.OBCHECK 08:32 → MW.OB 15:19 → MW.OBCHECK 15:19 → MW.OB 15:48 → MW.OBCHECK 15:49 → MW.OB 15:50 → OBSVTOIN 15:51
PROVIDERS: ADMIT Advanced Practice Midwife; ATTEND Advanced Practice Midwife
PROC: 10E0XZZ Delivery of Products of Conception, External Approach (ICD-10-PCS; principal; 2017-06-09)
PROC: 3E033VJ Introduction of Other Hormone into Peripheral Vein, Percutaneous Approach (ICD-10-PCS; 2017-06-09)
PROC: 0HQ9XZZ Repair Perineum Skin, External Approach (ICD-10-PCS; 2017-06-09)
DX: O13.4 Gestational [pregnancy-induced] hypertension without significant proteinuria, complicating childbirth (principal); O70.0 First degree perineal laceration during delivery; Z3A.39 39 weeks gestation of pregnancy; Z37.0 Single live birth
CPT/HCPCS: 36415; 59025; 59409; 85027; 86850; 86900; 86901; A9270-GY; J2590; J7120

== ENCOUNTER 2018-12-13 08:45 | Emergency (ER) | payer SELFPAY ==
--- NOTE | 2018-12-13 08:54 | EDM.PDOC ---
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 Time Seen by Provider: 12/13/18 08:49 - History of Present Illness INITIAL COMMENTS - FREE TEXT/NARRATIVE: HISTORY AND PHYSICAL: History of present illness: Patient's 23-year-old white female who presents with a concern of medical screening exam for . She denies other complaints Review of systems: As per history of present illness and below otherwise all systems reviewed and negative. Past medical history: As per history of present illness and as reviewed below otherwise noncontributory. Surgical history: As per history of present illness and as reviewed below otherwise noncontributory. Social history: No reported history of drug or alcohol abuse. Family history: As per history of present illness and as reviewed below otherwise noncontributory. Physical exam: HEENT: Atraumatic, normocephalic, pupils reactive, negative for conjunctival pallor or scleral icterus, mucous membranes moist, throat clear, neck supple, nontender, trachea midline. Lungs: Clear to auscultation, breath sounds equal bilaterally, chest nontender. Heart: S1S2, regular, negative for clicks, rubs, or JVD. Abdomen: Soft, nondistended, nontender. Negative for masses or hepatosplenomegaly. Negative for costovertebral tenderness. Pelvis: Stable nontender. Genitourinary: Deferred. Rectal: Deferred. Extremities: Atraumatic, negative for cords or calf pain. Neurovascular unremarkable. Neuro: Awake, alert, oriented. Cranial nerves II through XII unremarkable. Cerebellum unremarkable. Motor and sensory unremarkable throughout. Exam nonfocal. Diagnostics: Serum hCG Therapeutics: None Impression: #1 medical screening exam Definitive disposition and diagnosis as appropriate pending reevaluation and review of above. - Related Data Allergies Allergy/AdvReac Type Severity Reaction Status Date / Time No Known Allergies Allergy Verified 05/15/14 20:57 Home Meds: Home Meds . 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 ED EXAM, GENERAL - Physical Exam Exam: See Below (See dictation) Departure - Departure Time of Disposition: 08:54 Disposition: Home, Self-Care 01 Condition: Good Clinical Impression: Encounter for medical screening examination - Discharge Information Referrals: PCP,Unknown [Primary Care Provider] - Additional Instructions: The following information is given to patients seen in the emergency department who are being discharged to home. This information is to outline your options for follow-up care. We provide all patients seen in our emergency department with a follow-up referral. The need for follow-up, as well as the timing and circumstances, are variable depending upon the specifics of your emergency department visit. If you don't have a primary care physician on staff, we will provide you with a referral. We always advise you to contact your personal physician following an emergency department visit to inform them of the circumstance of the visit and for follow-up with them and/or the need for any referrals to a consulting specialist. The emergency department will also refer you to a specialist when appropriate. This referral assures that you have the opportunity for followup care with a specialist. All of these measure are taken in an effort to provide you with optimal care, which includes your followup. Under all circumstances we always encourage you to contact your private physician who remains a resource for coordinating your care. When calling for followup care, please make the office aware that this follow-up is from your recent emergency room visit. If for any reason you are refused follow-up, please contact the [facility] emergency department at and asked to speak to the emergency department charge nurse. Follow-up primary medical doctor as needed as discussed return as needed as discussed
[2018-12-13 10:19] VITALS: BP 135/60
== END 2018-12-13 09:57 | disposition home or self-care (01) ==
LOC: MW.ED 08:45
DX: Z13.9 Encounter for screening, unspecified (principal)
CPT/HCPCS: 36415; 84703; 99282

== ENCOUNTER 2022-12-22 20:43 | Emergency (ER) | payer BC, MEDICAID ==
[2022-12-22] MEDS ORDERED: Lactated Ringers 1,000 ML IV ONE (21:00)
[2022-12-22 21:07] VITALS: PULSE 92
[2022-12-22 21:56] LABS: CARBON DIOXIDE,CO2 26.3 mmol/L (21.0-32.0); POTASSIUM,K 3.4 mmol/L (3.5-5.1)
[2022-12-22 23:51] VITALS: BP 134/80
== END 2022-12-22 23:51 | disposition home or self-care (01) ==
LOC: MW.ED 20:43
DX: O20.9 Hemorrhage in early pregnancy, unspecified (principal); Z3A.15 15 weeks gestation of pregnancy
CPT/HCPCS: 36415; 76815; 80053; 85025; 86850; 86900; 86901; 96360; 99284; J7120

== ENCOUNTER 2023-12-05 15:40 | Emergency (ER) | payer BC, MEDICAID, OTHER ==
[2023-12-05 16:48] VITALS: BP 142/94; PULSE 102
== END 2023-12-05 16:49 | disposition home or self-care (01) ==
LOC: MW.ED 15:40
DX: M54.2 Cervicalgia (principal); M54.50 Low back pain, unspecified; Z79.899 Other long term (current) drug therapy; Z86.19 Personal history of other infectious and parasitic diseases; Z75.8 Other problems related to medical facilities and other health care; V49.40XA Driver injured in collision with unspecified motor vehicles in traffic accident, initial encounter; Y93.89 Activity, other specified
CPT/HCPCS: 99283